=== PATIENT | male | born 1950 | race American Indian/Alaskan Native ===

== ENCOUNTER 2016-12-06 12:42 | Emergency (ER) | payer MEDICARE, OTHER ==
[2016-12-06] MEDS: TORADOL IM ONE (15:35)
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
[2016-12-06 16:22] LABS: Hematocrit 42.5 % (35.5-45.6); Hemoglobin 14.7 gm/dl (11.8-15.2); Mean Corpuscular HGB Conc 35 % (32-34); Mean Corpuscular Hemoglobin 32 pg (28-32); Mean Corpuscular Volume 91 fl (84-94); Platelet Count 172 K/mm3 (140-440); Red Blood Count 4.67 M/mm3 (3.65-5.03); Red Cell Distribution Width 12.9 % (13.2-15.2); White Blood Count 6.7 K/mm3 (4.5-11.0)
[2016-12-06 16:29] LABS: Anion Gap 16 mmol/L; BUN/Creatinine Ratio 20; Blood Urea Nitrogen 18 mg/dL (9-20); Calcium 8.8 mg/dL (8.4-10.2); Carbon Dioxide 29 mmol/L (22-30); Chloride 99.1 mmol/L (98-107); Creatine Kinase 107 units/L (55-170); Glucose 151 mg/dL (75-100); Potassium 3.6 mmol/L (3.6-5.0); Sodium 140 mmol/L (137-145)
[2016-12-06 17:05] VITALS: BP 140/80
[2016-12-06 18:52] LABS: Basophils % (Manual) 0 % (0.0-1.8); Blastocytes % (Manual) 0 %; Eosinophils % (Manual) 0 % (0.0-4.3)
[2016-12-06 18:53] LABS: Platelet Estimate Consistent w Auto; RBC Morphology Normal
[2016-12-06 18:54] LABS: Diff Status Complete
== END 2016-12-06 17:04 | disposition home or self-care (01) ==
LOC: ED 12:42
DX: E11.40 Type 2 diabetes mellitus with diabetic neuropathy, unspecified (principal); I10 Essential (primary) hypertension
CPT/HCPCS: 36415; 80048; 82550; 82962; 85007; 85025; 96372; 99283; J1885